=== PATIENT | male | born 1965 | race Caucasian/White ===

== ENCOUNTER 2021-05-31 10:52 | Emergency (ER) | payer BC, SELFPAY ==
--- NOTE | ~2021-05-31 | XR_ITS ---
EXAMINATION: XR hand LT min 3V EXAM DATE: 05/31/2021 11:41 INDICATION: Lt 5th Finger Fb-Long Splinter Thru Length Of Finger. TECHNIQUE: Left hand frontal, lateral and oblique projections obtained and reviewed. There is no jimmy or study for comparison. FINDINGS: Left metacarpal bones are unremarkable. There are no acute fractures or dislocations ident ified. There is no subcutaneous gas. The soft tissue is unremarkable. There are no radiopaque for eign bodies but please note wood is poorly visualized by x-ray. Mild polyarticular primary osteoarth ritis. IMPRESSION: No acute osseous findings. Reviewed, dictated and finalized at location B. [place] IMPRESSION: No acute osseous findings.
[2021-05-31 11:21] VITALS: BP 226/114; PULSE 60; RESP 16; TEMP 36.2; O2SAT 98
--- NOTE | 2021-05-31 11:27 | PC.NURSE ---
Pt's BP is elevated. Pt reports a Hx of HTN and states that his BP has been out of control recently. Pt reports that he has addressed this with PCP and was just started on a new BP medication 3 days ago. Pt states that he did take his medications this morning. ERP aware. Will recheck BP after pt rests for a while.
[2021-05-31] MEDS: cloNIDine HCL 0.2 MG TABLET PO (11:45)
[2021-05-31] MEDS: IBUPROFEN 400 MG TABLET 800 MG PO (11:45)
--- NOTE | 2021-05-31 12:52 | PC.NURSE ---
ERP would like to speak with a hand surgeon. Pt states that he usually goes to [facility]. [facility] transfer center called. Consult paged and Dr. Velásquez will be calling back.
[2021-05-31] MEDS: cefTRIAXone 1 GM VIAL IM (13:08)
--- NOTE | 2021-05-31 13:39 | PC.NURSE ---
Placed 2nd call to [facility] Transfer Line regarding call back from hand surgeon. Was told Dr. Velásquez is currently dealing with an emergency and will call back as soon as possible.
[2021-05-31 13:40] VITALS: BP 148/106; PULSE 50; RESP 16; O2SAT 97
--- NOTE | 2021-05-31 13:48 | PC.NURSE ---
ERP speaking with hand surgeon, Dr. Velásquez. Pt updated.
--- NOTE | 2021-05-31 14:18 | ED.SKABFB ---
HPI - Skin/Abscess/Foreign Bdy General Chief complaint: Skin/Abscess/Foreign Body Stated complaint: splinter through pinky finger Time Seen by Provider: 05/31/21 10:56 Source: patient and RN notes reviewed Mode of arrival: ambulatory Limitations: no limitations History of Present Illness complaint: foreign body (wood splinter of distal phalanx left 5th finger palmar x 1 hr.) Onset (ago): hour(s) (1) Tetanus up to date: yes Location: LUE (5th finger left.) Severity: mild Severity scale (1-10): 3 Quality: aching Pain Consistency: constant Relieving factors: none Exacerbating factors: movement Associated symptoms: denies other symptoms Treatments prior to arrival: bandages Related Data Home Medications Medication Instructions Recorded Confirmed Lipitor 40 mg DAILY 05/31/21 05/31/21 amlodipine 10 mg DAILY 05/31/21 05/31/21 chlorthalidone 25 mg DAILY 05/31/21 05/31/21 lisinopril 40 mg DAILY 05/31/21 05/31/21 Allergies Allergy/AdvReac Type Severity Reaction Status Date / Time No Known Allergies Allergy Unknown Verified 05/31/21 11:17 Review of Systems Review of Systems: All systems reviewed & are unremarkable except as noted in HPI and below PMFSH Past Medical History Medical History Foreign body (FB) in soft tissue Exam Const: General: no acute distress and alert Nutritional Appearance: well nourished Orientation/consciousness: patient oriented x3 Limitations: no limitations HENMT: Head: normal to inspection Ears: external ears normal and TM's normal bilaterally General nose exam: Normal external nose present Face and sinus: normal facial exam and sinuses nontender Mouth: Yes lip normal and Yes moist mucous membranes Teeth and gingiva: dentition normal Eyes: Conjunctivae: conjunctivae normal Pupils: Equal, round and reactive pupils present EOM: EOMs intact bilaterally Neck: Neck: normal visual inspection and no lymphadenopathy Chest: Chest palpation & inspection: normal inspection of the chest Resp: Effort & Inspection: normal respiratory effort Auscultation: clear to auscultation bilaterally Cardio: Rate: regular rate Rhythm: regular rhythm GI: Auscultation: normal bowel sounds : General: Yes bladder normal to palpation and Yes no CVA tenderness Male General Exam: Yes normal external exam Testes: Testes normal Back/Spine/Pelvis: Back: no CVA tenderness Skin: General skin exam: normal color Neuro: General: patient oriented x3, moves all extremities, no meningeal signs, no focal motor deficits and CN's II-XI intact bilaterally Extrem: General: normal to inspection (palmar aspect distal phalanx left 5th finger with entry and exit wounds. ) and no pedal edema Psych: Appearance: grossly normal and well kempt Mental Status: mental status grossly normal Affect: normal affect Attitude: cooperative Thought content: Yes Normal thought content present Course Course Emergency Course: pt was stable in the ed with less pain. Reevaluation(s) Reevaluation #1: BP was moderated via Rx. Date: 05/31/21 Time: 11:52 Vital Signs Vital signs: Vital Signs Temperature 36.2 C L 05/31/21 11:21 Pulse Rate 60 05/31/21 11:21 Respiratory Rate 16 05/31/21 11:21 Blood Pressure 226/114 H 05/31/21 11:21 Pulse Oximetry 98 05/31/21 11:21 Temperature 35.9 C L 05/31/21 14:40 Pulse Rate 54 L 05/31/21 14:40 Respiratory Rate 16 05/31/21 14:40 Blood Pressure 202/108 H 05/31/21 14:40 Pulse Oximetry 100 05/31/21 14:40 Procedures Foreign Body Removal Foreign Body #1: Foreign Body Removal Date: 05/31/21 Foreign Body Removal Time: 12:08 Time Out Performed: yes Site: left and hand (distal phalanx left 5th finger palmar ) Description of foreign body: other (wood splinter.) Sedation/Analgesia: none Technique: manual removal, removal with forceps, incision made to facilitate removal
[2021-05-31] MEDS: LIDOCAINE HCL 2% PF INJ 5 ML VIAL (14:27)
[2021-05-31 14:40] VITALS: BP 202/108; PULSE 54; RESP 16; TEMP 35.9; O2SAT 100
== END 2021-05-31 14:43 | disposition home or self-care (01) ==
PROVIDERS: Emergency Provider Emergency Medicine
DX: S61.247A Puncture wound with foreign body of left little finger without damage to nail, initial encounter (principal); W45.8XXA Other foreign body or object entering through skin, initial encounter
CPT/HCPCS: 10120; 73130; 96372; 99283; A9270; J0696

== ENCOUNTER 2021-12-12 14:05 | Observation (INO) | payer BC, SELFPAY ==
[2021-12-12] VITALS (25 sets, daily range): BP systolic 156–254; BP diastolic 90–136; PULSE 74–110; RESP 9–20; TEMP 36.4–37.2; O2SAT 92–100; BMI 22.3
--- NOTE | ~2021-12-12 | XR_ITS ---
EXAMINATION: XR hand LT min 3V DATE: 12/13/2021 17:49 INDICATION: Left hand third digit pain. TECHNIQUE: 3 views of left hand were obtained. COMPARISON: Left hand radiographs 05/31/2021 FINDINGS: Bone alignment is normal. No fracture. There is moderate osteoarthritis of second metacarpo phalangeal joint and severe osteoarthritis of third metacarpophalangeal joint. There is moderate oste oarthritis of first interphalangeal joint and mild osteoarthritis of some of the other interphalangea l joints. IMPRESSION: 1. Polyarticular osteoarthritis. Reviewed, dictated and finalized at location A.
--- NOTE | ~2021-12-12 | XR_ITS ---
EXAMINATION: XR chest 2V DATE: 12/12/2021 15:08 INDICATION: Transient alteration of awareness TECHNIQUE: PA and lateral views of the chest are obtained. COMPARISON: None available FINDINGS: The lungs are free of acute opacities. No pleural effusion or pneumothorax. The cardiomedia stinal silhouette is normal. There is mild thoracic spondylosis. There is an age-indeterminate T12 co mpression fracture. IMPRESSION: 1. No acute cardiopulmonary abnormality. Reviewed, dictated and finalized at location B.
--- NOTE | ~2021-12-12 | CT_ITS ---
EXAMINATION: CTA chest PE protocol DATE: 12/12/2021 19:12 INDICATION: Syncope. TECHNIQUE: Computed tomography angiography (CTA) of the chest was performed with 100 mL Omnipaque-350 intravenous contrast timed to evaluate the pulmonary arteries. Coronal maximum intensity projection 3D-reconstructions were created by the technologist. Automated exposure control and iterative reconst ruction technique were employed. The dose-length product was 209.22 mGy-cm. COMPARISON: None. FINDINGS: There is no pneumonia or pleural effusion. The heart size is normal. There are coronary art bethany calcifications. No pericardial effusion. There is no pulmonary embolus. There is a healing fractu re of right ninth rib with callus formation. There is a chronic compression fracture of T12. IMPRESSION: 1. No pulmonary embolus. Reviewed, dictated and finalized at location A. IMPRESSION: 1. No pulmonary embolus.
--- NOTE | ~2021-12-12 | US_ITS ---
EXAMINATION: US carotid duplex BI DATE: 12/13/2021 09:05 INDICATION: Syncopal episode. Carotid atherosclerosis. TECHNIQUE: Grayscale, color Doppler, and pulsed Doppler images of the cervical carotid arteries were obtained. The degree of vessel stenosis is placed in one of the following categories: normal, <50%, 5 0-69%, >=70% but less than near-occlusion, near-occlusion, or total occlusion. Note that percent sten osis relative to normal distal artery lumen diameter is indirectly measured from velocity measurement s as described by Rico, et al. Radiology 2003; 229:340-346. COMPARISON: None. FINDINGS: RIGHT: The right common carotid artery (CCA) peak systolic velocity (PSV) is 98 cm/s. The right internal car otid artery (ICA) PSV is 66 cm/s. The right ICA end-diastolic velocity (EDV) is 15 cm/s. The right IC A/CCA PSV ratio is 0.7. Grayscale and color Doppler images yield an estimate of <50% diameter reducti on from plaque in the ICA. The external carotid artery (ECA) PSV is 121 cm/s. There is antegrade flow in the right vertebral artery. LEFT: The left CCA PSV is 149 cm/s. The left ICA PSV is 70 cm/s. The left ICA EDV is 19 cm/s. The left ICA/ CCA PSV ratio is 0.5. Grayscale and color Doppler images yield an estimate of <50% diameter reduction from plaque in the ICA. The ECA PSV is 70 cm/s. There is antegrade flow in the left vertebral artery . IMPRESSION: 1. <50% stenosis in the right internal carotid artery. 2. <50% stenosis in the left internal carotid artery. Reviewed, dictated and finalized at location A.
--- NOTE | ~2021-12-12 | CT_ITS ---
EXAMINATION: CT brain wo con DATE: 12/12/2021 15:24 INDICATION: Syncope. Headache. TECHNIQUE: Computed tomography (CT) of the head was performed without intravenous contrast. The mA wa s adjusted according to patient size. Iterative reconstruction technique was employed. The dose-lengt h product was 605.33 mGy-cm. COMPARISON: Head CT 06/17/2018 FINDINGS: There is no intracranial hemorrhage, acute infarction, or abnormal intracranial mass lesion . There are scattered areas of low attenuation in the cerebral white matter, which is within normal l imits for the patient's age. The ventricles are normal in size. There is mild mucosal thickening in t he ethmoid sinuses. The mastoid air cells are normal. The orbits are normal. IMPRESSION: 1. Normal aging brain. Reviewed, dictated and finalized at location A. IMPRESSION: 1. Normal aging brain.
--- NOTE | 2021-12-12 14:09 | ECG_ITS ---
Measurements Intervals [place] Rate: 105 P: 70 VA: 70 QRS: 70 QRSD: 89 T: 66 QT: 353 QTc: 467 Interpretive Statements SINUS TACHYCARDIA WITH SHORT VA INTERVAL LEFT VENTRICULAR HYPERTROPHY WITH ST-T CHANGE BORDERLINE ECG NO PREVIOUS ECG AVAILABLE FOR COMPARISON Electronically Signed On 12-12-2021 14:39:48 CDT by Clarence Contreras D.O.
[2021-12-12 14:42] LABS: Basophils Percent Auto 0.4 % (0.2-1.2); Hematocrit 42.7 % (42.0-52.0); Hemoglobin 14.9 g/dL (14.0-18.0); Immature Granulocyte Absolute 0.03 K/mm3 (0.00-0.031); Immature Granulocyte Percent A 0.4 % (0-0.5); Lymphocytes Absolute Auto 1.13 K/mm3 (0.9-3.2); Lymphocytes Percent Auto 16.3 % (18.3-44.2); Mean Corpuscular HGB Conc 34.9 g/dl (32-36); Mean Corpuscular Hemoglobin 33.1 pg (26-34); Mean Corpuscular Volume 94.9 fl (80-100); Mean Platelet Volume 10.7 fl (7.4-10.4); Monocytes Absolute Auto 0.4 K/mm3 (0.1-0.6); Monocytes Percent Auto 5.5 % (2.6-8.5); Neutrophils Absolute Auto 5.4 K/mm3 (1.3-6.7); Neutrophils Percent Auto 77.4 % (45.5-73.1); Platelet Count Result 292 k/mm3 (150-375); Red Cell Distribution Width 12.8 % (11.5-14.5); White Blood Count 6.9 K/mm3 (4.5-10.0)
[2021-12-12 14:58] LABS: Alanine Aminotransferase 22 U/L (6-50); Albumin Level 5.2 g/dL (3.5-5.1); Alkaline Phosphatase 126 U/L (38-126); Anion Gap 25 mmol/L (8-16); Aspartate Amino Transferase 56 U/L (17-59); Bilirubin,Total 0.8 mg/dL (0.2-1.3); Blood Urea Nitrogen 19 mg/dL (9-20); Carbon Dioxide 15 mmol/L (22-30); Chloride 97 mmol/L (98-107); Estimated CRCL calculation 65 ml/min; Estimated Glomerular Filt Rate > 60; Glucose 64 mg/dL (65-110); Potassium 3.6 mmol/L (3.4-5.0); Sodium 137 mmol/L (137-145)
--- NOTE | 2021-12-12 14:58 | ED.SYNCOPE ---
HPI - Syncope General Chief Complaint: Syncope Stated Complaint: syncope Time Seen by Provider: 12/12/21 14:23 History of Present Illness HPI narrative: 56-year-old male presents to the ER today for complaints of syncopal episodes x2 and headache. He also has very elevated blood pressure today. He says that he has not taken his blood pressure medicine for about a week and a half. He says that when he gets up he feels dizzy and lightheaded. He denies having any chest pain or palpitations. No nausea vomiting or diarrhea. No swelling in hands or feet. Related Data Home Medications Medication Instructions Recorded Confirmed Lipitor 40 mg DAILY 05/31/21 05/31/21 amlodipine 10 mg DAILY 05/31/21 05/31/21 chlorthalidone 25 mg tablet 25 mg DAILY 05/31/21 05/31/21 lisinopril 40 mg DAILY 05/31/21 05/31/21 Allergies Allergy/AdvReac Type Severity Reaction Status Date / Time No Known Allergies Allergy Unknown Verified 05/31/21 11:17 Review of Systems Review of Systems: CONSTITUTIONAL: Denies fever, chills, or sweats. EYES: Denies visual changes, redness, or discharge. ENT: Denies rhinorrhea, congestion, sore throat, or otalgia. CARDIOVASCULAR: Denies chest pain, palpitations, or edema. RESPIRATORY: Denies cough or dyspnea. GASTROINTESTINAL: Denies abdominal pain, nausea, vomiting, or diarrhea. GENITOURINARY: Denies dysuria or hematuria. SKIN: Denies rash or itching. MUSCULOSKELETAL: Denies back pain, joint pain, or myalgia. NEUROLOGIC: As per HPI PSYCHIATRIC: Denies anxiety or depression. [facility] Past Medical History Medical History Foreign body (FB) in soft tissue Exam Narrative: GENERAL: Well-appearing, well-nourished, and in no acute distress. HEAD: Normocephalic, atraumatic. EYES: PERRLA and EOMI. NECK: Supple. No adenopathy or masses. No carotid bruits or JVD CHEST: Clear to auscultation. No respiratory distress. No wheezes rales or rhonchi HEART: Regular rate and rhythm. No murmur heard. Normal peripheral pulses. ABDOMEN: Soft, nontender, nondistended, normal active bowel sounds. EXTREMITIES: Normal range of motion. No edema. SKIN: Warm, dry, no rash. NEURO: No focal deficits. Alert and oriented x3. PSYCH: Normal mood and affect. Course Course Emergency Course: 1744 Discussed with Marily Daly MOTION PICTURE PROJECTIONIST APPRENTICE, accepting patient for observation admission to care of Dr. Sky. Vital Signs Vital signs: Vital Signs Temperature 37.2 C 12/12/21 14:13 Pulse Rate 110 H 12/12/21 14:13 Respiratory Rate 16 12/12/21 14:13 Blood Pressure 254/131 H 12/12/21 14:13 Pulse Oximetry 99 12/12/21 14:13 Oxygen Delivery Room Air 12/12/21 14:13 Temperature 37.2 C 12/12/21 14:13 Pulse Rate 91 12/12/21 16:45 Respiratory Rate 16 12/12/21 16:45 Blood Pressure 176/100 H 12/12/21 16:45 Pulse Oximetry 94 12/12/21 16:45 Oxygen Delivery Room Air 12/12/21 14:13 MDM - Syncope Lab Data Attestation: I reviewed the patient's lab results. Result diagrams: 12/12/21 14:33 12/12/21 14:32 Labs: Lab Results 12/12/21 12/12/21 12/12/21 Range/Units 14:32 14:32 14:32 WBC (4.5-10.0) K/mm3 RBC (4.6-6.20) M/mm3 Hgb (14.0-18.0) g/dL Hct (42.0-52.0) % MCV (80-100) fl MCH (26-34) pg MCHC (32-36) g/dl RDW (11.5-14.5) % Plt Count (150-375) k/mm3 MPV (7.4-10.4) fl Immature Gran % (Auto) (0-0.5) % Neut % (Auto) (45.5-73.1) % Lymph % (Auto) (18.3-44.2) % Mcdowell % (Auto) (2.6-8.5) % Eos % (Auto) (0-4.4) % Baso % (Auto) (0.2-1.2) % Lymph # (Auto) (0.9-3.2) K/mm3 Mcdowell # (Auto) (0.1-0.6) K/mm3 Eos # (Auto) (0-0.3) K/mm3 Baso # (Auto) (0.0-0.1) K/mm3 Abs Immat Gran (auto) (0.00-0.031) K/mm3 Absolute Neuts (auto) (1.3-6.7) K/mm3 Absolute Nucleated RBC (0.0-0.012) K/mm3 Nucleated RBC % (0.0-0.2) % D-Dimer
[2021-12-12] MEDS: LABETALOL HCL INJ 100 MG/20 ML VIAL 20 MG IV PUSH (15:14)
[2021-12-12 15:18] LABS: Magnesium 1.2 mg/dL (1.6-2.3)
[2021-12-12 15:31] LABS: Troponin I 0.013 ng/mL (0.000-0.034)
[2021-12-12] MEDS: MAGNESIUM SULF 2 GM/WATER 50ML 2 GM/50 ML BAG IVPB (15:35)
[2021-12-12] MEDS: hydrALAZINE HCL 20 MG/ML VIAL IV PUSH (16:06)
[2021-12-12] MEDS: SODIUM CHLORIDE 0.9% IV 1,000 ML 999 ML IV CONT (18:25)
[2021-12-12] MEDS: fentaNYL CITRATE INJ (*CRX) 100 MCG/2 ML VIAL 50 MCG IV PUSH (18:26)
[2021-12-12 18:34] LABS: D Dimer 0.71 ug/mL (<0.48)
--- NOTE | 2021-12-12 18:40 | PM.IMHP ---
H&P: HPI History of Present Illness Date/Time: 12/12/21 18:40 Chief Complaint: Syncope Narrative: This is a 56-year-old male patient who is very hard of hearing. He has a history of hyperlipidemia and hypertension. The patient tells me that he has been out of his blood pressure medicine for at least 1 week now. The patient stated that he experienced a syncopal episode x2 and also has a headache. He stated that he has had episodes like this in the past but was never given a diagnosis. The patient has a significant elevation in his blood pressure. The patient was given lisinopril, Norvasc, chlorthalidone, labetalol, hydralazine, Zofran and fentanyl in the emergency room. The patient complained of lightheadedness and dizziness as well as nausea. Chest CTA was read as no pulmonary embolus. The patient did have a mildly elevated D-dimer. Head CT was read as a normal aging brain. Chest x-ray was read as no acute cardiopulmonary abnormality. The patient was negative for COVID. The patient had no white count. He did have a anion gap of 25. His magnesium was low at 1.2 and he was given a magnesium supplement. Troponin was negative. The patient had no complaints of any chest pain. The patient is being admitted to observation status on the date of service of 12/12/2021. Review of Systems Review of Systems: See HPI All systems reviewed & are unremarkable except as noted in HPI and below Constitutional: Constitutional: Reports as per HPI and Reports no additional constitutional complaints Eyes: Eyes: Reports as per HPI and Reports no additional eye complaints ENT: Reports system reviewed and no additional complaints, except as documented and Reports Normal hearing present Cardiovascular: Cardiovascular: Reports no additional cardiovascular complaints Respiratory: Respiratory: Reports no additional respiratory complaints and Reports no additional respiratory complaints Gastrointestinal: Gastrointestinal: Reports as per HPI and Reports no additional gastrointestinal complaints Musculoskeletal: Musculoskeletal: Reports no additional musculoskeletal complaints Integumentary/Breasts: Skin/Breast: Reports system reviewed and no additional complaints, except as docu and Reports as per HPI Neurologic: Reports system reviewed and no additional complaints, except as documented, Reports as per HPI and Reports Normal hearing present Psychiatric: Psychiatric: Reports no additional psychiatric complaints and Reports as per HPI Endocrine: Endocrine: Reports no additional endocrine complaints Hematologic/Lymphatic: Hematologic/Lymphatic: Reports no additional hematologic/lymphatic complaints Allergic/Immunologic: Allergic/Immunologic: Reports no additional allergic/immunologic complaints PMFSH Past Medical History Medical History Combined hyperlipidemia Foreign body (FB) in soft tissue HTN (hypertension), malignant Surgical History Surgical History History of appendectomy History of coronary artery stent placement Family History Family History Sibling Paralysis Social History Social History (Updated 12/12/21 @ 22:26 by Marily Ruiz NP) Social History: The patient lives alone and has 2 children. 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 The patient is a former smoker and denies any alcohol marijuana or illicit drugs. The patient does not have a durable power benzene washer for healthcare. Code status full code Smoking packs per day: 2 Smoking cigarettes per day: 40.0 Years smoked: 20 Smoking pack-years: 40.00 Smoking status: Former smoker Tobacco type: cigarettes Smoking end date: 11/28/98 Alcohol intake: former Substance use type: does not use Spiritual care concerns: No Meds Home Medications and Allergies Home Medi
[2021-12-12 18:48] LABS: SARS-CoV-2 RNA PCR Negative
--- NOTE | 2021-12-12 20:23 | ADMGEN ---
This patient, John Yoon, was admitted to Medical Room 348-. Patient/family oriented to hospital policies and general routines including ID bracelet, bed and alarms, visiting hours, pain management, procedures, bathroom and other care routines, personal items, smoking policy, room service/diet, and visiting hours. Information on how to activate the Rapid Response Team has been discussed. Patient/Family are encouraged to report perceived risks to care and to ask questions if they do not understand what they are told or what they should do.
[2021-12-12] MEDS: lisinopriL 20 MG TABLET 40 MG PO (21:13)
[2021-12-12] MEDS: amLODIPine BESYLATE 5 MG TABLET 10 MG PO (21:13)
[2021-12-12] MEDS: ONDANSETRON INJ 4 MG/2 ML VIAL IV PUSH (21:31)
[2021-12-12 22:38] LABS: Glucose Point of Care 190 mg/dl (65-105)
[2021-12-12] MEDS: NITROGLYCERIN OINTMENT 1 INCH DOSE 0.5 INCH TRANSDERM (22:59)
[2021-12-12] MEDS: ACETAMINOPHEN 325 MG TABLET 650 MG PO (23:07)
[2021-12-12 23:10] LABS: Amphetamine Screen Urine Negative (Negative); Barbiturate Screen Urine Negative (Negative); Benzodiazepines Screen Urine Negative (Negative); Cannabinoid Screen Urine Negative (Negative); Cocaine Screen Urine Negative (Negative); Methadone Screen Urine Negative (Negative); Opiate Screen Urine Negative (Negative); Phencyclidine Screen Urine Negative (Negative)
[2021-12-13] VITALS (12 sets, daily range): BP systolic 150–195; BP diastolic 88–108; PULSE 68–96; RESP 16–20; TEMP 36.2–36.9; O2SAT 98–99
--- NOTE | 2021-12-13 | ECHO_ITS ---
Patient Info Name: John Yoon Age: 56 years : 1965 Gender: Male Ht: 66 in Wt: 138 lbs BSA: 1.71 m2 HR: 76 bpm BP: 150 / 88 mmHg Heart Rhythm: Sinus Rhythm Technical Quality: Fair Exam Date: 12/13/2021 12:57 PM Exam Location: [facility] Patient Status: Outpatient Admit Date: 12/12/2021 Staff Ordering Physician: Marily Ruiz NP Compressor Operator Portable: Marj Newman RDCS Attending Provider: Humberto Sky MD Referring Physician: Sara WATSON; Exam Type: CA echo doppler color flow Study Info Indications - murmur Complete two-dimensional, color flow and Doppler transthoracic echocardiogram is performed. Summary 1. Complete two-dimensional, color flow and Doppler transthoracic echocardiogram is performed. 2. Left ventricular chamber dimension is normal. 3. Left ventricular systolic function is normal, estimated at 65-70%. 4. There is mildly increased left ventricular wall thickness. 5. The left ventricular diastolic function is grade I diastolic dysfunction. 6. E/e' 16 is elevated. 7. There is mild aortic valve regurgitation. 8. There is trace tricuspid valve regurgitation. 9. No pulmonary hypertension, estimated pulmonary arterial systolic pressure is 26 mmHg. Left Ventricle E/e' 16 is elevated. Left ventricular chamber dimension is normal. Left ventricular systolic function is normal, estimated at 65-70%. There is mildly increased left ventricular wall thickness. The left ventricular diastolic function is grade I diastolic dysfunction. Right Ventricle Right ventricular systolic function is normal and with normal TAPSE 2.5 cm. Right ventricular chamber dimension is normal. Left Atria Left atrial chamber dimension is normal. Right Atria Right atrial chamber dimension is normal. Aortic Valve The aortic valve is trileaflet. There is no aortic valve stenosis. There is mild aortic valve regurgitation. Pulmonic Valve There is no pulmonic regurgitation. Mitral Valve There is no mitral valve stenosis. There is no mitral valve regurgitation. Tricuspid Valve There is trace tricuspid valve regurgitation. No pulmonary hypertension, estimated pulmonary arterial systolic pressure is 26 mmHg. Pericardium/Pleural There is no pericardial effusion. Inferior Vena Cava Normal inferior vena cava with >50% collapse upon inspiration consistent with normal right atrial pressure, 5 mmHg. Aorta The aortic root size at the sinus of Valsalva is normal. Left Ventricular Outflow Tract Name Value Normal LVOT 2D LVOT Diameter 2.1 cm LVOT Doppler LVOT Peak Gradient 6 mmHg LVOT Mean Gradient 3 mmHg LVOT VTI 21 cm LVOT VTI/AV VTI Ratio 0.9 LVOT Stroke Volume 69 ml LVOT CO 5.4 l/min LVOT CI 3.1 l/min/m2 Pulmonic Valve Name Value Normal -------
[2021-12-13] MEDS: LORazepam (*CRX) 0.5 MG TABLET PO (00:07)
[2021-12-13 06:37] LABS: Basophils Percent Auto 0.1 % (0.2-1.2); Eosinophils Percent Auto 0.1 % (0-4.4); Hematocrit 37.8 % (42.0-52.0); Hemoglobin 13.5 g/dL (14.0-18.0); Immature Granulocyte Absolute 0.01 K/mm3 (0.00-0.031); Immature Granulocyte Percent A 0.1 % (0-0.5); Lymphocytes Absolute Auto 1.43 K/mm3 (0.9-3.2); Lymphocytes Percent Auto 20.7 % (18.3-44.2); Mean Corpuscular HGB Conc 35.7 g/dl (32-36); Mean Corpuscular Hemoglobin 33.8 pg (26-34); Mean Corpuscular Volume 94.7 fl (80-100); Mean Platelet Volume 10.8 fl (7.4-10.4); Monocytes Absolute Auto 1.1 K/mm3 (0.1-0.6); Monocytes Percent Auto 15.3 % (2.6-8.5); Neutrophils Absolute Auto 4.4 K/mm3 (1.3-6.7); Neutrophils Percent Auto 63.7 % (45.5-73.1); Platelet Count Result 227 k/mm3 (150-375); Red Blood Count 3.99 M/mm3 (4.6-6.20); Red Cell Distribution Width 13.2 % (11.5-14.5); White Blood Count 6.9 K/mm3 (4.5-10.0)
[2021-12-13 06:46] LABS: Lactic Acid Reflex 0.7 mmol/L (0.7-2.0)
[2021-12-13 06:47] LABS: Alanine Aminotransferase 17 U/L (6-50); Albumin Level 4.1 g/dL (3.5-5.1); Alkaline Phosphatase 94 U/L (38-126); Anion Gap 11 mmol/L (8-16); Aspartate Amino Transferase 31 U/L (17-59); Bilirubin,Total 1.1 mg/dL (0.2-1.3); Blood Urea Nitrogen 18 mg/dL (9-20); Calcium 8.7 mg/dL (8.4-10.2); Carbon Dioxide 23 mmol/L (22-30); Chloride 97 mmol/L (98-107); Estimated CRCL calculation 71 ml/min; Estimated Glomerular Filt Rate > 60; Glucose 99 mg/dL (65-110); Lactate Dehydrogenase 220 U/L (120-246); Magnesium 1.7 mg/dL (1.6-2.3); Sodium 131 mmol/L (137-145)
[2021-12-13] MEDS: SPIRONOLACTONE 50 MG TABLET PO (09:12)
[2021-12-13] MEDS: ATORVASTATIN 40 MG TABLET PO (09:12)
[2021-12-13] MEDS: CHLORTHALIDONE 25 MG TABLET PO (09:13)
[2021-12-13] MEDS: lisinopriL 20 MG TABLET 40 MG PO (09:26)
[2021-12-13] MEDS: amLODIPine BESYLATE 5 MG TABLET 10 MG PO (09:27)
[2021-12-13] MEDS: POTASSIUM CHLORIDE 20 MEQ TABLET 40 MEQ PO (12:46)
[2021-12-13] MEDS: ACETAMINOPHEN 325 MG TABLET 650 MG PO ×2 (12:47→18:57)
--- NOTE | 2021-12-13 17:22 | PM.IMPN ---
Progress Note: A&P Assessment and Plan (1) Syncope due to orthostatic hypotension: Code(s): I95.1 - Orthostatic hypotension Status: Acute Assessment and Plan: Suspect all symptoms are secondary to noncompliance with blood pressure medications, symptoms stabilized since restarting medication, anticipate discharge home tomorrow (2) Headache: Code(s): R51.9 - Headache, unspecified Status: Acute Assessment and Plan: Improving, likely secondary to hypertension (3) HTN (hypertension), malignant: Code(s): I10 - Essential (primary) hypertension Status: Acute Assessment and Plan: Stable (4) Combined hyperlipidemia: Code(s): E78.2 - Mixed hyperlipidemia Status: Acute Assessment and Plan: Continue statin (5) Hypertensive urgency: Code(s): I16.0 - Hypertensive urgency Status: Acute Assessment and Plan: Stable, will add clonidine and increase spironolactone Plan DVT prophylaxis with SCDs GI prophylaxis not indicated Code status full code Subjective Date/time seen: 12/13/21 17:22 Interval history: Patient states he feels much better today than yesterday, still with a little bit of a headache and some lightheadedness. No overnight events noted. No chest pain or shortness of breath. No nausea, vomiting or diarrhea. No fevers or chills. Review of Systems Review of Systems: 12 point review of systems was assessed and was negative except as noted in the HPI Exam Narrative: General: No acute distress, alert and oriented per baseline HEENT: Atraumatic, normocephalic, mucous membranes moist CV: Regular rate and rhythm, S1, S2 Lungs: Clear to auscultation bilaterally, no rales or crackles noted, no wheezes, good air entry Abdomen: Soft, nontender, nondistended Extremities: Normal to inspection Skin: No rashes noted, no lesions or wounds seen Psych: Euthymic, normal affect Objective Data Vital Signs Vital Signs: Vital Signs - 24 hr 12/12/21 17:30 12/12/21 17:31 12/12/21 17:46 Temperature Pulse Rate 84 86 85 Respiratory Rate 14 15 15 Blood Pressure 174/95 H Pulse Oximetry 98 97 98 Oxygen Delivery 12/12/21 18:00 12/12/21 18:15 12/12/21 20:00 Temperature Pulse Rate 87 88 88 Respiratory Rate 12 15 18 Blood Pressure 171/99 H 177/98 H Pulse Oximetry 98 97 99 Oxygen Delivery Room Air 12/12/21 20:56 12/12/21 20:58 12/12/21 21:03 Temperature 97.8 F Pulse Rate 91 88 92 Respiratory Rate 18 Blood Pressure 213/101 H 226/104 H 225/109 H Pulse Oximetry 99 Oxygen Delivery 12/12/21 22:36 12/12/21 23:45 12/13/21 00:00 Temperature 97.6 F Pulse Rate 93 95 Respiratory Rate 20 Blood Pressure 210/112 H 182/90 H Pulse Oximetry 99 Oxygen Delivery 12/13/21 04:00 12/13/21 04:23 12/13/21 08:00 Temperature 97.2 F L Pulse Rate 79 76 Respiratory Rate 16 Blood Pressure 150/88 H 182/105 H Pulse Oximetry 98 Oxygen Delivery 12/13/21 10:23 12/13/21 10:23 12/13/21 14:00 Temperature 98.5 F Pulse Rate 91 Respiratory Rate 20 Blood Pressure 156/108 H 195/102 H 187/93 H Pulse Oximetry 99 Oxygen Delivery 12/13/21 09:15 Temperature Pulse Rate Respiratory Rate Blood Pressure Pulse Oximetry Oxygen Delivery Room Air Intake/Output Intake/Output: Intake & Output 12/10/21 12/11/21 12/12/21 12/13/21 23:59 23:59 23:59 23:59 Intake Total 1050 1000 Output Total 500 Balance 1050 500 Meds/Results Medications: Active Medications Generic Name Dose Route Start Last Admin Trade Name Freq PRN Reason Stop Dose Admin Acetaminophen 650 mg 12/12/21 22:34 12/13/21 12:47 Acetaminophen 325 Mg Tablet PO 650 mg Q4H PRN Administration Headache Amlodipine Besylate 10 mg 12/13/21 09:00 12/13/21 09:27 Amlodipine Besylate 5 Mg Tablet PO 01/12/22 08:59 10 mg DAILY MARTINEZ Administration Atorvastatin Calcium 40 mg
[2021-12-13] MEDS: SPIRONOLACTONE 25 MG TABLET PO (18:54)
[2021-12-13] MEDS: SODIUM CHLORIDE 0.9% IV 1,000 ML 75 ML IV CONT (18:59)
[2021-12-13] MEDS: cloNIDine HCL 0.1 MG TABLET PO (20:27)
[2021-12-14] VITALS: PULSE 53; PULSE 69
[2021-12-14 04:00] VITALS: PULSE 53
[2021-12-14 04:22] VITALS: BP 141/90; PULSE 72; RESP 16; TEMP 36.5; O2SAT 99
[2021-12-14] MEDS: SODIUM CHLORIDE 0.9% IV 1,000 ML 75 ML IV CONT (08:48)
[2021-12-14] MEDS: amLODIPine BESYLATE 5 MG TABLET 10 MG PO (08:49)
[2021-12-14] MEDS: lisinopriL 20 MG TABLET 40 MG PO (08:50)
[2021-12-14] MEDS: ATORVASTATIN 40 MG TABLET PO (08:50)
[2021-12-14] MEDS: CHLORTHALIDONE 25 MG TABLET PO (08:50)
[2021-12-14] MEDS: SPIRONOLACTONE 50 MG TABLET 100 MG PO (08:51)
[2021-12-14] MEDS: cloNIDine HCL 0.1 MG TABLET PO (08:51)
[2021-12-14] MEDS: ACETAMINOPHEN 325 MG TABLET 650 MG PO (08:52)
[2021-12-14 10:05] VITALS: BP 152/86; PULSE 70; RESP 20; TEMP 36.5; O2SAT 100
[2021-12-14 10:45] VITALS: O2SAT 97
--- NOTE | 2021-12-14 18:02 | PM.DS ---
DS: Admitting Diagnosis Discharge Date 12/14/21 Admitting Diagnosis Syncopal episode with headache DS: Discharge Diagnosis Discharge Diagnosis (1) Syncope due to orthostatic hypotension: Code(s): I95.1 - Orthostatic hypotension Status: Acute Assessment and Plan: Suspect all symptoms are secondary to noncompliance with blood pressure medications, symptoms stabilized since restarting medication, anticipate discharge home tomorrow (2) Headache: Code(s): R51.9 - Headache, unspecified Status: Acute Assessment and Plan: Improving, likely secondary to hypertension (3) HTN (hypertension), malignant: Code(s): I10 - Essential (primary) hypertension Status: Acute Assessment and Plan: Stable (4) Combined hyperlipidemia: Code(s): E78.2 - Mixed hyperlipidemia Status: Acute Assessment and Plan: Continue statin (5) Hypertensive urgency: Code(s): I16.0 - Hypertensive urgency Status: Acute Assessment and Plan: Stable, will add clonidine and increase spironolactone Plan DVT prophylaxis with SCDs GI prophylaxis not indicated Code status full code DS: Summary Hospital Course Hospital Course: 56-year-old male with past medical history significant for hyperlipidemia and hypertension is presenting with 2 syncopal episodes associated with a headache. Patient states he has had episodes like this in the past with blood pressure went really high. He ran out of his blood pressure medication about a week ago and was unable to afford the replacement because his PCP recently started him on a new blood pressure medications it was very expensive. He was unable to get refills of his old medication and could not afford the new medication, so he was in the process of trying to get an appointment when he had to go a week without medications. His blood pressure was significantly high, 200/100, it was 230/116 in the ER. He states the 2 episodes where he passed out happened when he felt a little bit dizzy, had a headache and felt some nausea and then slowly slid to the ground. He was given multiple antihypertensives in the ER with little improvement. He was also restarted on his home medications. Echo was ordered and showed an EF of 65-70% with grade 1 diastolic dysfunction, no pulmonary hypertension and no significant valvular abnormalities noted. His symptoms completely resolved. Blood pressure came down slowly over a few days. He was started on clonidine in his spironolactone was increased. He was discharged with a 1 month supply of all of his blood pressure medications. He will follow-up with his PCP in the next 2 weeks. He was instructed to check his blood pressure daily to confirm it does not go too low now that he has been restarted on more medications. Time Spent with Patient Time attestation: Total time spent providing and/or coordinating discharge services: Exam Narrative: General: No acute distress, alert and oriented per baseline HEENT: Atraumatic, normocephalic, mucous membranes moist CV: Regular rate and rhythm, S1, S2 Lungs: Clear to auscultation bilaterally, no rales or crackles noted, no wheezes, good air entry Abdomen: Soft, nontender, nondistended Extremities: Normal to inspection Skin: No rashes noted, no lesions or wounds seen Psych: Euthymic, normal affect Discharge Plan Discharge Attending physician on discharge: Sia Stokes Discharging Clinician: Sia Stokes Patient Disposition: Home, Self-Care Activity: as tolerated Diet: as tolerated Discharge Instructions: Take your BP every morning. If it starts to go below 110/70 or you feel lightheaded upon standing and weak, you may hold the AM dose of clonidine. Patient Instructions: Antibiotic Form Stand Alone Forms: General Discharge Information Follow-up/Referrals: PHYSICIAN NOT ON STAFF,NONSTAFF [Primary Care Provider] - Discharge Medicat
== END 2021-12-14 12:32 | disposition home or self-care (01) ==
LOC: ANHED 18:39 → ANH3MED 21:12
PROVIDERS: Emergency Medicine; Nurse Practitioner; Admitting Provider Family Medicine; Emergency Provider Nurse Practitioner Family; Visit Provider Student in an Organized Health Care Education/Training Program
DX: I95.1 Orthostatic hypotension (principal); R51.9 Headache, unspecified; I11.9 Hypertensive heart disease without heart failure; E78.2 Mixed hyperlipidemia; I16.0 Hypertensive urgency; R42 Dizziness and giddiness; H91.90 Unspecified hearing loss, unspecified ear; R79.1 Abnormal coagulation profile; Z20.822 Contact with and (suspected) exposure to COVID-19; E83.42 Hypomagnesemia; Z95.5 Presence of coronary angioplasty implant and graft; M19.042 Primary osteoarthritis, left hand; Z18.9 Retained foreign body fragments, unspecified material; I35.1 Nonrheumatic aortic (valve) insufficiency; R94.31 Abnormal electrocardiogram [ECG] [EKG]; Z87.891 Personal history of nicotine dependence; Z79.899 Other long term (current) drug therapy; Z82.49 Family history of ischemic heart disease and other diseases of the circulatory system
CPT/HCPCS: 36415; 70450; 71046; 71275; 73130; 80053; 80307; 82948; 83605; 83615; 83735; 84443; 84484; 85025; 85380; 93005; 93306; 93880; 96361; 96365; 96366; 96375; 99285; A9270; C9803; G0378; J0360; J2405; J3010; J3475; J7030; Q9967; U0003; U0005

== ENCOUNTER 2022-05-24 21:12 | Emergency (ER) | payer BC, SELFPAY ==
[2022-05-24] VITALS (7 sets, daily range): BP systolic 219–253; BP diastolic 134–159; PULSE 87–108; RESP 11–36; O2SAT 96–100
--- NOTE | ~2022-05-24 | CT_ITS ---
EXAMINATION: CT cervical spine wo con DATE: 05/24/2022 23:03 INDICATION: Fall. TECHNIQUE: Computed tomography (CT) of the cervical spine was performed without intravenous contrast. Automated exposure control and iterative reconstruction technique were employed. Exam dose: 479.14 mGy-cm total exam DLP. COMPARISON: None FINDINGS: There is reversal cervical curvature which may be due to positioning and/or muscle spasm. C1 and C2 are normally aligned and the odontoid process is intact. No fracture or dislocation or lock ed facet or prevertebral soft tissue swelling. There is minimal anterolisthesis at C3-4. There is severe degenerative disc disease at C4-5, C5-6 and C6-7. There is uncovertebral joint spurri ng at these levels as well.. IMPRESSION: Reversal cervical curvature which may be due to muscle spasm Prominent cervical spondylosis No fracture or dislocation or locked facet Reviewed, dictated and finalized at [facility]. Reviewed, dictated and finalized at [facility]. ING MANAGER
--- NOTE | ~2022-05-24 | CT_ITS ---
EXAMINATION: CT brain wo con DATE: 05/24/2022 23:03 INDICATION: Posterior head injury. Headache. TECHNIQUE: Computed tomography (CT) of the head was performed without intravenous contrast. The mA wa s adjusted according to patient size. Iterative reconstruction technique was employed. Exam dose: 68 1.00 mGy-cm total exam DLP. COMPARISON: 12/10/2021 CT brain FINDINGS: There are skin dianne overlying a high posterior left parietal convexity cephalohematoma. No skull fracture. No intracranial mass lesion or hemorrhage or cerebrovascular accident, midline shift or mass effect i s detected. There is moderate central and cortical cerebral and mild cerebellar atrophy. No subdural or epidural hematoma. Partial opacification of right ethmoid air cells. The mastoid air cells and included paranasal sinuse s are otherwise unremarkable. IMPRESSION: High left posterior parietal cephalohematoma; no evidence of skull fracture or acute int racranial finding Reviewed, dictated and finalized at [facility]. Reviewed, dictated and finalized at [facility]. OROLOGY FACULTY MEMBER IMPRESSION: High left posterior parietal cephalohematoma; no evidence of skull fracture or acute intracranial finding
--- NOTE | 2022-05-24 22:28 | ED.GENADULT ---
HPI - General Adult General Chief complaint: Head Injury Stated complaint: fall. hit head. lac +LOC Time Seen by Provider: 05/24/22 21:53 History of Present Illness HPI narrative: Patient a 56-year-old gentleman who presents the emergency department with chief complaint of head injury. Patient reports that he was drinking this evening and fell striking his head. Patient reports there is a laceration of the scalp patient is unsure if he had loss of consciousness due to the amount of alcohol on board. Related Data Allergies Allergy/AdvReac Type Severity Reaction Status Date / Time No Known Allergies Allergy Unknown Verified 05/31/21 11:17 Review of Systems Review of Systems: A 10 system review of systems was completed on the patient and is negative except for what is stated in the HPI. Nursing and ancillary documentation was reviewed. [facility] Past Medical History Medical History Combined hyperlipidemia Foreign body (FB) in soft tissue HTN (hypertension), malignant Surgical History Surgical History History of appendectomy History of coronary artery stent placement Family History Family History Sibling Paralysis Social History Social History Social History: The patient lives alone and has 2 children. 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 The patient is a former smoker and denies any alcohol marijuana or illicit drugs. The patient does not have a durable power criminal attorney for healthcare. Code status full code Smoking packs per day: 2 Smoking cigarettes per day: 40.0 Years smoked: 20 Smoking pack-years: 40.00 Smoking status: Former smoker Tobacco type: cigarettes Smoking end date: 11/28/98 Alcohol intake: former Substance use type: does not use Spiritual care concerns: No Exam Narrative: GENERAL: Well-appearing, well-nourished, and in no acute distress. HEAD: Normocephalic, 3 cm stellate laceration of the scalp. EYES: PERRLA and EOMI. ENT: Nares clear, no rhinorrhea or epistaxis. Mucous membranes moist. NECK: Supple. CHEST: Clear to auscultation. No respiratory distress. HEART: Regular rate and rhythm. No murmur heard. Normal peripheral pulses. ABDOMEN: Soft, nontender, nondistended, normal active bowel sounds. EXTREMITIES: Normal range of motion. No edema. SKIN: Warm, dry, no rash. NEURO: No focal deficits. Alert and oriented x3. PSYCH: Normal mood and affect. Course Vital Signs Vital signs: Vital Signs Pulse Rate 108 H 05/24/22 21:19 Respiratory Rate 36 H 05/24/22 21:19 Blood Pressure 253/144 H 05/24/22 21:19 Pulse Oximetry 100 05/24/22 21:19 Oxygen Delivery Room Air 05/24/22 21:19 Pulse Rate 107 H 05/24/22 23:22 Respiratory Rate 19 05/24/22 23:22 Blood Pressure 219/134 H 05/24/22 22:17 Pulse Oximetry 96 05/24/22 23:22 Oxygen Delivery Room Air 05/24/22 21:19 Procedures Laceration Laceration 1: Date: 05/24/22 Time: 22:29 Site: scalp Size (cm): 3 Description: stellate Depth: simple, single layer Local Anesthetic: none Pre-repair: wound explored, irrigated and irrigated extensively ====== Skin Level ====== Skin layer closed with: dianne Number of sutures: 9 Technique: other (Skin dianne) ====== Subcutaneous Layer ====== ====== Muscle Layer ====== ====== Tendon Layer ====== Medical Decision Making [facility] Narrative Medical decision making narrative: Differential diagnosis includes scalp laceration, intracranial injury cervical fracture. Patient is currently alert oriented tetanus is up-to-date Laceration was repaired Due to the presence of EtOH and the significant he
[2022-05-25] VITALS: PULSE 89; RESP 19; O2SAT 98
[2022-05-25 00:15] VITALS: PULSE 86; RESP 15; O2SAT 97
[2022-05-25 00:45] VITALS: BP 188/130; PULSE 102; RESP 16; O2SAT 99
== END 2022-05-25 00:45 | disposition home or self-care (01) ==
PROVIDERS: Emergency Provider Emergency Medicine
DX: S01.01XA Laceration without foreign body of scalp, initial encounter (principal); F10.10 Alcohol abuse, uncomplicated; Y90.9 Presence of alcohol in blood, level not specified; I10 Essential (primary) hypertension; E78.2 Mixed hyperlipidemia; Z95.5 Presence of coronary angioplasty implant and graft; Z87.891 Personal history of nicotine dependence; W19.XXXA Unspecified fall, initial encounter
CPT/HCPCS: 12002; 70450; 72125; 99284